=== PATIENT | female | born 1950 | race Caucasian/White ===

== ENCOUNTER 2016-11-12 06:41 | Day surgery (SDC) | payer MEDICARE, BC ==
[2016-11-12] MEDS ORDERED: Lactated Ringers 1,000 ML IV SCH (06:45)
[2016-11-12] MEDS ORDERED: Sodium Chloride 0.9% 10 ML Syringe FLUSH PRN (06:45)
[2016-11-12] MEDS ORDERED: Lidocaine 2% 100 MG/5 ML Syringe IVPUSH ONE (07:50)
[2016-11-12] MEDS ORDERED: Propofol 200 MG/20 ML SDV IV ONE (07:50)
[2016-11-12] MEDS ORDERED: Midazolam 1 MG/ML 2 ML SDV IV ONE (07:50)
[2016-11-12] MEDS ORDERED: Ondansetron 4 MG/2 ML SDV IVPUSH ONE (07:50)
--- NOTE | 2016-11-12 08:32 | PCM.OPNOTE ---
- General Post-Op/Procedure Note Date of Surgery/Procedure: 11/12/16 Operative Procedure(s): c scope Findings: sigmoid diverticulosis Pre Op Diagnosis: history of colon polyps Post-Op Diagnosis: sigmoid diverticulosis Anesthesia Technique: MASON Primary Surgeon: Sergei Delgado Anesthesia Provider: Amita Trujillo Pathology: none Complications: None Condition: Good Free Text/Narrative:: see dictation
[2016-11-12 09:48] VITALS: BP 122/73
--- NOTE | 2016-11-12 12:57 | OR ---
DATE OF OPERATION: 11/12/2016 SURGEON: Sergei Delgado MD PROCEDURE PERFORMED: Colonoscopy. PREOPERATIVE DIAGNOSIS: Personal history of colon polyps. POSTOPERATIVE DIAGNOSIS: Sigmoid diverticulosis. INDICATIONS FOR PROCEDURE: This is a 66-year-old white female, who presents for followup scope. She has a personal history of polyps. She was offered and accepted the same. DESCRIPTION OF OPERATION: After an excellent IV sedation was administered, digital rectal exam was performed. No marked abnormality was noted. Flexible colonoscope was inserted and advanced without difficulty to the cecum. The prep was excellent. The following findings were noted. Prep was overall good. There were areas that we had to irrigate especially in the rectal area. There was some particulate matter throughout, but we were able to irrigate the majority of it and get a good view of the mucosa. The ascending colon was unremarkable. Transverse colon was unremarkable. Descending colon was unremarkable. Sigmoid demonstrated some moderate diverticulosis. There was a little bit of narrowing in this area. I did not see any evidence of any neoplastic growth, however, and this was done with both normal light and IV light. The rectum itself was also unremarkable. Colon was deflated, the scope was removed. The patient tolerated the procedure well and was taken to recovery room in good condition. Repeat scope in 10 years. /[id number] /MODL
== END 2016-11-12 10:05 | disposition home or self-care (01) ==
LOC: FB.SDS 06:41
PROVIDERS: ATTEND Surgery
DX: Z12.11 Encounter for screening for malignant neoplasm of colon (principal); Z86.010 Personal history of colon polyps; K57.30 Diverticulosis of large intestine without perforation or abscess without bleeding; I10 Essential (primary) hypertension; E78.5 Hyperlipidemia, unspecified; Z79.82 Long term (current) use of aspirin; Z79.899 Other long term (current) drug therapy; Z79.2 Long term (current) use of antibiotics; Z98.890 Other specified postprocedural states
CPT/HCPCS: 00810; G0105; J2250; J2405; J2704; J7120